=== PATIENT | female | born 1995 | race Caucasian/White ===

== ENCOUNTER 2020-10-23 13:49 | Emergency (ER) | payer MEDICAID ==
[~2020-10-23] VITALS: Ht 157.5 cm; Wt 49.9 kg
[2020-10-23 13:55] VITALS: BP_SYST 107
[2020-10-23] MEDS ORDERED: LORATADINE 10 MG TABLET PO ONE (14:15)
[2020-10-23] MEDS ORDERED: predniSONE 20 MG TABLET PO ONE (14:15)
[2020-10-23] MEDS ORDERED: FEXO1TAB42 PO (14:18)
[2020-10-23] MEDS ORDERED: PRED20TA PO (14:18)
[2020-10-23 14:56] VITALS: BP_SYST 107
== END 2020-10-23 14:56 | disposition home or self-care (01) ==
LOC: SED 13:49
DX: L29.9 Pruritus, unspecified (principal); T47.8X5A Adverse effect of other agents primarily affecting gastrointestinal system, initial encounter; Y92.89 Other specified places as the place of occurrence of the external cause
CPT/HCPCS: 81025; 99283; J7512

== ENCOUNTER 2021-04-27 10:08 | Emergency (ER) | payer MEDICAID, SELFPAY ==
[~2021-04-27] VITALS: Ht 157.5 cm; Wt 49.9 kg
[~2021-04-27 10:08] MED LIST: FEXO1TAB42 PO; PRED20TA PO
[2021-04-27 10:18] VITALS: BP_SYST 109
--- NOTE | 2021-04-27 10:18 | NUR ---
Patient to ER bed 5 to gown for evaluation. Side rails up.
--- NOTE | 2021-04-27 10:19 | NUR ---
PT CAME IN FROM HOME C/O N/V/D SINCE THURSDAY WITH GENERAL ABD PAIN. STATES SHE SAW A DOCTOR THIS PAST WEEK AND WAS GIVEN RX OF ZOFRAN WITHOUT REILEF. PT REPORTS HX OF ULCERATIVE COLITIS. PT IS AMBULATORY, AAOX4, VSS
--- NOTE | 2021-04-27 10:20 | NUR ---
ER DR. NICOLE EXAMINING PT
--- NOTE | 2021-04-27 10:31 | NUR ---
LAB AT THE BEDSIDE
--- NOTE | 2021-04-27 10:50 | NUR ---
Patient transported to radiology via AMBULATION, accompanied by STAFF.
[2021-04-27 10:55] LABS: CALCIUM 9.2 mg/dL (8.4-11.0); CREATININE 0.49 mg/dL (0.55-1.30); POTASSIUM 3.2 mmol/L (3.5-5.1)
--- NOTE | 2021-04-27 10:56 | NUR ---
Returned from radiology, back to [facility].
[2021-04-27 11:00] LABS: BASOPHILS # (AUTO) 0.1 K/uL (0.0-0.2); BASOPHILS % (AUTO) 0.5 % (0.0-2.0); EOSINOPHILS # (AUTO) 1.3 K/uL (0.0-0.4); EOSINOPHILS % (AUTO) 8.2 % (0.0-4.0); HEMATOCRIT 34.8 % (36-48); HEMOGLOBIN 11.3 g/dL (12.0-16.0); LYMPHOCYTES # (AUTO) 3.6 K/uL (1.0-5.5); LYMPHOCYTES % (AUTO) 21.6 % (20.5-51.5); MEAN CORPUSCULAR HEMOGLOBIN 27 pg (27-31); MEAN CORPUSCULAR HGB CONC 32 % (32-36); MEAN CORPUSCULAR VOLUME 85 fL (79.0-98.0); MONOCYTES # (AUTO) 1.5 K/uL (0.0-1.0); MONOCYTES % (AUTO) 9.3 % (1.7-9.3); NEUTROPHILS % (AUTO) 60.4 % (40.0-70.0); PLATELET COUNT (AUTO) 520 K/uL (130-430); RED BLOOD CELL COUNT(AUTO) 4.12 MIL/uL (4.2-6.2); RED CELL DISTRIBUTION WIDTH 17.2 % (9.0-15.0); WHITE BLOOD COUNT (AUTO) 16.5 K/uL (4.8-10.8)
[2021-04-27 11:02] LABS: ALBUMIN 3.9 g/dL (3.4-4.8); TOTAL BILIRUBIN 0.2 mg/dL (0.0-1.0)
[2021-04-27] MEDS ORDERED: NACL 0.9% 2,000 ML IV ONE (11:45)
[2021-04-27] MEDS ORDERED: HYDR-3917 PO (11:53)
[2021-04-27] MEDS ORDERED: REGL10 PO (11:53)
--- NOTE | 2021-04-27 13:45 | NUR ---
PT AMBULATES TO RESTROOM WITH STEADY GAIT
--- NOTE | 2021-04-27 14:30 | NUR ---
PT RESTING IN BED, AAOX4, NO DISTRESS NOTED
[2021-04-27 15:41] VITALS: BP_SYST 122
--- NOTE | 2021-04-27 15:42 | NUR ---
Patient given written and verbal discharge instructions and verbalizes understanding. ER MD discussed with patient the results and treatment provided. Patient in stable condition. ID arm band removed. IV catheter removed intact and dressing applied, no active bleeding. Rx of NORCO AND REGLAN given. Patient educated on pain management and to follow up with PMD. Pain Scale 0/10. Opportunity for questions provided and answered. Medication side effect fact sheet provided.
== END 2021-04-27 15:42 | disposition home or self-care (01) ==
LOC: SED 10:08
DX: K51.90 Ulcerative colitis, unspecified, without complications (principal); E86.0 Dehydration; Z79.899 Other long term (current) drug therapy
CPT/HCPCS: 36415; 74176; 76376; 80053; 81002; 81025; 82150; 83605; 83690; 85025; 86140; 96360; 99284; J7030

== ENCOUNTER 2021-08-22 06:32 | Day surgery (SDC) | payer MEDICAID ==
[~2021-08-22] VITALS: Ht 157.5 cm; Wt 52.2 kg
[~2021-08-22 06:32] MED LIST changes: +HYDR-3917 PO; +REGL10 PO
[2021-08-22] MEDS ORDERED: MEPERIDINE 100 MG INJ. 100 MG/ML VIAL ONE (06:49)
[2021-08-22] MEDS ORDERED: MIDAZOLAM HCL 5 MG/5 ML VIAL ONE ×2 (06:49→08:03)
[2021-08-22 07:07] LABS: HCG,QUAL RESULT NEGATIVE (NEGATIVE)
[2021-08-22] MEDS ORDERED: DIPHENHYDRAMINE INJ 50 MG/ML VIAL ONE (08:02)
[2021-08-22] MEDS ORDERED: ONDANSETRON HCL 4 MG/2 ML VIAL ONE (08:03)
[2021-08-22 12:44] VITALS: BP_SYST 103
== END 2021-08-22 10:20 | disposition home or self-care (01) ==
LOC: SDS 06:32 → SMU 06:33 → SDS 10:20
PROVIDERS: ATTEND Internal Medicine Gastroenterology
DX: K51.911 Ulcerative colitis, unspecified with rectal bleeding (principal); K52.9 Noninfective gastroenteritis and colitis, unspecified; K51.90 Ulcerative colitis, unspecified, without complications; Z79.899 Other long term (current) drug therapy; Z20.822 Contact with and (suspected) exposure to COVID-19
CPT/HCPCS: 36415; 45380; 84703; 88305; 99152; 99153; G0378; J1200; J2175; J2250; J2405; U0003

== ENCOUNTER 2022-06-19 09:12 | Emergency (ER) | payer MEDICAID ==
[~2022-06-19] VITALS: Ht 157.5 cm; Wt 48.5 kg
[2022-06-19 09:34] VITALS: BP_SYST 109
--- NOTE | 2022-06-19 10:14 | NUR ---
BROUGHT BACK TO BED #4 AND REPORT GIVEN TO ANGELES
--- NOTE | 2022-06-19 10:15 | NUR ---
PT BIB SELF, AWAKE AND ALERT AOX4, NO SOB OR DISTRESS. PT C/O ABDOMINAL PAIN X2 DAYS. PT STATES SHE HAS BLOODY RED STOOL X30 DAY. PT HAS HX OF ULCERATIVE COLITIS . PT ALSO STATES SHE HAD N/V/D. X2 DAYS
--- NOTE | 2022-06-19 10:16 | NUR ---
MD DR NICOLE AT BEDSIDE
[2022-06-19 10:24] LABS: BASOPHILS # (AUTO) 0.1 K/uL (0.0-0.2); BASOPHILS % (AUTO) 0.5 % (0.0-2.0); EOSINOPHILS # (AUTO) 1.1 K/uL (0.0-0.4); EOSINOPHILS % (AUTO) 5.6 % (0.0-4.0); HEMATOCRIT 32.3 % (36-48); HEMOGLOBIN 10.6 g/dL (12.0-16.0); LYMPHOCYTES # (AUTO) 5.3 K/uL (1.0-5.5); LYMPHOCYTES % (AUTO) 27.3 % (20.5-51.5); MEAN CORPUSCULAR HEMOGLOBIN 29 pg (27-31); MEAN CORPUSCULAR HGB CONC 33 % (32-36); MEAN CORPUSCULAR VOLUME 90 fL (79.0-98.0); MONOCYTES # (AUTO) 1.9 K/uL (0.0-1.0); MONOCYTES % (AUTO) 9.6 % (1.7-9.3); PLATELET COUNT (AUTO) 615 K/uL (130-430); RED BLOOD CELL COUNT(AUTO) 3.61 MIL/uL (4.2-6.2); RED CELL DISTRIBUTION WIDTH 14.6 % (9.0-15.0); WHITE BLOOD COUNT (AUTO) 19.3 K/uL (4.8-10.8)
[2022-06-19 10:36] LABS: CALCIUM 9.3 mg/dL (8.4-11.0); CREATININE 0.59 mg/dL (0.55-1.30)
[2022-06-19 10:41] LABS: ALBUMIN 3.3 g/dL (3.4-4.8); C-REACTIVE PROTEIN QUANT 2.7 mg/dL (0-0.5); TOTAL BILIRUBIN 0.1 mg/dL (0.0-1.0)
[2022-06-19] MEDS ORDERED: KETOROLAC TROMETHAMINE 60 MG/2 ML VIAL IM ONE (10:45)
[2022-06-19] MEDS ORDERED: ONDANSETRON 4 MG ODT TAB PO ONE (10:45)
--- NOTE | 2022-06-19 10:57 | NUR ---
PT TAKEN TO CT
[2022-06-19 11:04] LABS: BILIRUBIN,URINE NEGATIVE (NEGATIVE); BLOOD, URINE 2+ (NEGATIVE); CLARITY/URINE CLEAR (CLEAR); COLOR,URINE YELLOW (YELLOW); GLUCOSE,URINE NEGATIVE (NEGATIVE); KETONES,URINE 2+ (NEGATIVE); LEUKOCYTE ESTERASE ,URINE NEGATIVE (NEGATIVE); NITRITE, URINE NEGATIVE (NEGATIVE); PROTEIN URINE 1+ (NEGATIVE); UROBILINOGEN,URINE 0.2 (0.2-1.0)
[2022-06-19 11:48] LABS: BACTERIA,URINE FEW /HPF (None Seen); MUCUS,URINE 3+ /LPF (None Seen); WBC,URINE 0-3 /HPF (0-3)
[2022-06-19] MEDS ORDERED: ONDA-8 TL (12:05)
[2022-06-19] MEDS ORDERED: IBUP-1969 PO (12:05)
[2022-06-19] MEDS ORDERED: NACL 0.9% 2,000 ML IV ONE (12:15)
[2022-06-19 14:04] VITALS: BP_SYST 135
--- NOTE | 2022-06-19 14:07 | NUR ---
Patient given written and verbal discharge instructions and verbalizes understanding. ER MD DR NICOLE discussed with patient the results and treatment provided. Patient in stable condition. ID arm band removed. IV catheter removed intact and dressing applied, no active bleeding. Rx of MOTRIN AND ZOFRAN given. Patient educated on pain management and to follow up with PMD. Pain Scale 4/10. Opportunity for questions provided and answered. Medication side effect fact sheet provided.
== END 2022-06-19 14:07 | disposition home or self-care (01) ==
LOC: SED 09:12
DX: K51.90 Ulcerative colitis, unspecified, without complications (principal); R51.9 Headache, unspecified; R10.30 Lower abdominal pain, unspecified; K62.5 Hemorrhage of anus and rectum; Z88.8 Allergy status to other drugs, medicaments and biological substances; Z79.899 Other long term (current) drug therapy
CPT/HCPCS: 99285; 70450; 96360; 71045; 80053; 81000; 82150; 84703; 83690; 85025; 86140; 84484; 36415; 76376; 74176; 81025; 96372; Q0162; J1885; J7030